=== PATIENT | male | born 1990 | race Caucasian/White ===

== ENCOUNTER 2024-03-20 09:51 | Emergency (ER) | payer BC, SELFPAY ==
[2024-03-20 10:13] VITALS: BP 168/109
[2024-03-20 10:35] LABS: % Basophils 1.4 % (0-2); % Eosinophils 9.4 % (0-6); % Lymphocytes 35.6 % (20.5-51.1); % Monocytes 8.9 % (1.7-9.3); % Neutrophils 44.7 % (42.2-75.2); Absolute Basophils 0.1 10^3/uL (0-0.2); Absolute Eosinophils 0.4 10^3/uL (0-0.7); Absolute Lymphocytes 1.6 10^3/uL (1.2-3.4); Absolute Monocytes 0.4 10^3/uL (0.1-0.6); Hematocrit 41.4 % (39.0-52.0); Hemoglobin 14.4 g/dL (13.0-18.0); Mean Corp Hgb Conc. 34.8 g/dL (33.0-37.0); Mean Corpuscular Hgb 30.1 pg (27.0-31.0); Mean Corpuscular Volume 86.4 fL (80.0-94.0); Mean Platelet Volume 9.6 fL (7.4-10.4); Nucleated Red Blood Cells % 0 % (-); Platelet Count 288 10^3/uL (130-400); Red Blood Cell Count 4.79 10^6/uL (4.70-6.10); Red Cell Dist. Width 11.7 % (11.5-14.5); White Blood Cell Count 4.4 10^3/uL (4.8-10.8)
[2024-03-20 11:02] VITALS: BP 179/93
[2024-03-20 11:19] LABS: ALT (SGPT) 40 U/L (0-50); AST (SGOT) 28 U/L (17-59); Albumin 4.8 g/dl (3.5-5.0); Alkaline Phosphatase 52 U/L (38-126); Blood Urea Nitrogen 10 mg/dl (9-20); Calcium 9.8 mg/dl (8.4-10.2); Carbon Dioxide 30 mmol/L (22-30); Chloride 98 mmol/L (98-107); Glucose 113 mg/dl (70-99); Potassium 4.5 mmol/L (3.5-5.1); Sodium 136 mmol/L (135-145); Total Bilirubin 0.6 mg/dl (0.2-1.3); Total Protein 7.2 g/dl (6.3-8.2); eGFR > 60.00
--- NOTE | 2024-03-20 11:29 | ED.GENMED ---
History of Present Illness
<Maxim Sood MD, Resident - Last Filed: 03/20/24 14:17>
General
Chief Complaint: Chest Pain
Source: patient and family
Time Seen by Provider: 03/20/24 11:03
Nursing documentation reviewed up to this point in time: agreed with
Travel History
Have you traveled to any high risk areas for coronavirus over the past 14 days?: No
Have you had any contact with someone who has COVID-19?: No
Do you have any symptoms of coronavirus? Fever > 100 degrees, chills, cough, shortness of breath, sore throat, loss of taste or smell, muscle aches, or headache?: No
History of Present Illness
History of Present Illness:
33-year-old male with PMH of asthma, sciatica, hyperlipidemia who presented to the emergency department today with chest pain and dizziness that started around 3 hours ago while sitting on his computer desk. Patient describes a stabbing chest pain
rated 8/10, radiating to the back and down his left arm. Patient took chewable aspirin and Pepcid with improvement of the chest pain. At that time, it was hard for patient to swallow water. Patient also reports that he had high blood pressure this
morning 189/118 and 220/122 on recheck. Patient has had significant family history of hypertension, TIA in his father, similar chest pain in his older brother and an uncle that of heart attack at the age of 50. He does not take any medications
and has not seen any PCP in 2 years. He has never had similar pain in the past. He denies any sick contacts, shortness of breath, abdominal pain, nausea, vomiting, constipation, fever or chills. Denies history of anxiety and depression.
Past History
<Maxim Sood MD, Resident - Last Filed: 03/20/24 14:17>
Past History
ED Past Medical History: Asthma and Hypercholesterolemia
ED Past Surgical History: None
Patient has exhibited threatening behavior?: No
Social History
Tobacco: Non-smoker
Alcohol: Occasional
Drug: None
Personal:
Living: with family
Employment: Employed
Family History
Family History: Hypertension and Other (Chest pain)
Review of Systems
<Maxim Sood MD, Resident - Last Filed: 03/20/24 14:17>
Review of Systems
Other source history: family
All Other Systems: ROS reviewed and negative except as documented in HPI and ROS
Phy Exam
<Maxim Sood MD, Resident - Last Filed: 03/20/24 14:17>
General Physical Exam
General Presentation: well appearing and no apparent distress
General age: appears stated age
General Skin: warm and dry
General Habitus: normal
General Mental: alert
General Hydration: appears well hydrated
ENT Exam
ENT Exam: neck supple and swallowing well
Eye Exam
Eye Exam: PERRL, cornea clear and conjunctiva normal
Cardiovascular Exam
Cardiovascular Exam: regular rate/rhythm, no edema, no gallop, no murmur and normal peripheral pulses
Heart Sounds: normal
Pulmonary Exam
Pulmonary Exam: lungs clear, no respiratory distress, no crackles, no wheezing and no cough
Gastrointestinal Exam
Gastrointestinal Exam: normal bowel sounds, non tender, soft, no organomegaly and non distended
Auscultation of Abdomen: normal
Neurological Exam
Neurological Exam: alert, oriented x3 and CN II-XII intact
Musculoskeletal Exam
Musculoskeletal Exam: full ROM and no edema
Skin Exam
Skin Exam: normal color, warm/dry, no rash and no petechia
Psychiatric Exam
Psychiatric Exam: normal mood/affect
Scores
<Maxim Sood MD, Resident - Last Filed: 03/20/24 14:17>
Heart Score for Chest Pain Patients
STEMI patient?: No
History: Slightly or Non-Suspicious
ECG: Normal
Age: </= 45 years
Risk Factors: No Risk Factors
Troponin: </= Normal Limit
Heart Score for Chest Pain Patients: 0
Heart Score Risk: 2.5% MACE over next 6 weeks
Course
<Maxim Paulo Sood MD, Resident - Last Filed: 03/20/24 14:17>
Orders/Labs/Results
Orders:
Orders
03/20/24 09:52
ECG [Electrocardiogram (*1)] Urgent
Reason for Study: Chest Pain
03/20/24 09:53
EKG- Treatment ONCE
03/20/24 10:23
Complete Blood Count/With Diff Urgent
Comprehensive Metabolic Panel Urgent
Troponin I Urgent
03/20/24 12:05
Vital Signs- Treatment ONCE
Frequency: Once
03/20/24 12:27
CXR2 [CR Chest - 2 Views ] Stat
Comment:
Reason For Exam: Chest pain
03/20/24 13:32
Troponin I Urgent
Abnormal Lab Results
03/20/24
10:23
WBC 4.4 L 10^3/uL
(4.8-10.8)
Eosinophils % 9.4 H %
(0-6)
Glucose 113 H mg/dl
(70-99)
03/20/24 10:23
03/20/24 10:23
Vital Signs
Initial and Last Documented VS:
Initial Vital Signs
Temp Pulse Resp BP Pulse Ox
98.2 F 74 16 168/109 98
03/20/24 10:13 03/20/24 10:13 03/20/24 10:13 03/20/24 10:13 03/20/24 10:13
Last Documented Vital Signs
Temp Pulse Resp BP Pulse Ox
98.2 F 62 14 149/91 97
03/20/24 10:13 03/20/24 12:45 03/20/24 12:45 03/20/24 12:30 03/20/24 12:45
<Valentino Diego, DO - Last Filed: 03/20/24 13:37>
Orders/Labs/Results
Orders:
Orders
03/20/24 09:52
ECG [Electrocardiogram (*1)] Urgent
Reason for Study: Chest Pain
03/20/24 09:53
EKG- Treatment ONCE
03/20/24 10:23
Complete Blood Count/With Diff Urgent
Comprehensive Metabolic Panel Urgent
Troponin I Urgent
03/20/24 12:05
Vital Signs- Treatment ONCE
Frequency: Once
03/20/24 12:27
CXR2 [CR Chest - 2 Views ] Stat
Comment:
Reason For Exam: Chest pain
03/20/24 13:32
Troponin I Urgent
Abnormal Lab Results
03/20/24
10:23
WBC 4.4 L 10^3/uL
(4.8-10.8)
Eosinophils % 9.4 H %
(0-6)
Glucose 113 H mg/dl
(70-99)
03/20/24 10:23
03/20/24 10:23
Vital Signs
Initial and Last Documented VS:
Initial Vital Signs
Temp Pulse Resp BP Pulse Ox
98.2 F 74 16 168/109 98
03/20/24 10:13 03/20/24 10:13 03/20/24 10:13 03/20/24 10:13 03/20/24 10:13
Last Documented Vital Signs
Temp Pulse Resp BP Pulse Ox
98.2 F 62 14 149/91 97
03/20/24 10:13 03/20/24 12:45 03/20/24 12:45 03/20/24 12:30 03/20/24 12:45
<Maxim Sood MD, Resident - Last Filed: 03/20/24 14:17>
MDM/Problems Addressed
Differential Diagnosis Includes:
GERD, acute coronary syndrome, musculoskeletal pain, aortic dissection.
MDM/Problems Addressed:
33-year-old male with PMH of asthma, hyperlipidemia presenting to the emergency department with stabbing chest pain radiating to the back and left arm. His chest pain is not pleuritic, is not hypoxic and has no edema on physical exam.
EKG within normal limits
1 hour troponin is normal
CBC and BMP within normal limits
Will repeat BP on both arms
Check chest x-ray
Chronic conditions affecting care: HTN
Acute Exacerbation and/or Progression of Chronic Illness: HTN
<Maxim Sood MD, Resident - Last Filed: 03/20/24 14:17>
*Pulse Oximetry
Patient hypoxic: no
*EKG
Interpreted by ED Provider?: Yes
Interpretation: normal
Comparison EKG: changes noted (WHEN COMPARED WITH ECG OF 24-AUG-2013 18:06, QT HAS SHORTENED)
Heart Rate: 68
Rate: normal
Rhythm: sinus arrhythmia
Interval: other (Short QT)
QRS Pattern: normal QRS
Ischemia: no ischemia
Data Reviewed
Review of Other/Old Records Reveals: Labs and Records (Creatinine 1.1 08/24/2013)
<Valentino Diego DO - Last Filed: 03/20/24 13:37>
*Radiology
Radiology exam reviewed: all reviewed NAD by ED Provider
*Power Cutting Machine Operator Interpretation
Rate: normal
Interpretation: normal
Rhythm: sinus
*Critical Care Note
Total Time (30-74mins, 75-104mins- exclusive of procedures): Not Applicable
Data Reviewed
Prescriptions/Medications Considered But Not Given:
Consider blood pressure management but patient would like to hold off for repeat blood pressure by his doctor
<Maxim Sood MD, Resident - Last Filed: 03/20/24 14:17>
Update Note
Update Note:
BP improved to 158/98 on left arm, 149/91 on right arm with no intervention.
ED Attending Note
<Maxim Sood MD, Resident - Last Filed: 03/20/24 14:17>
-
Portions of this chart may have been created with voice recognition software.� Occasional wrong word or��sound alike� substitutions may have occurred due to the inherent limitations of voice recognition software.
<Valentino Diego DO - Last Filed: 03/20/24 13:37>
ED Attending Note
Patient seen and examined by attending physician: Yes
I performed a history and physical exam of patient and discussed management with resident, I reviewed resident's note and agree with documented findings and plan of care.: Yes
ED Attending Note:
33-year-old male with history of hypertension who presents for evaluation of chest pain. Patient states he had pain in his left chest and radiate toward his back. He a tough time swallowing water. Patient now feels much better. Did eat a granola
bar this morning. Does admit he took his blood pressure was noted to be elevated. Patient mitts that he has been told he has high blood pressure in the past but has not seen his doctor. Exam: Awake and alert, no respiratory distress, heart
regular without murmurs. No lower extremity edema, no tachycardia, pulse ox normal at 90%. Assessment plan: EKG normal. Initial troponin negative. Blood pressure is elevated but equal bilateral upper extremities. Does have strong family history
of hypertension. Advised strongly for outpatient follow-up for blood pressure management. Did offer him antihypertensives but patient would like to hold off for now and follow-up with his primary care doctor which I think is reasonable. No
clinical concern for PE, dissection or SD. Repeat troponin pending. Given low suspicion I do think it is reasonable to let him go pending the result and he will come back if we find is elevated.
Discharge Plan
Departure
Patient Disposition: Home (Routine Discharge)
Date of Disposition: 03/20/24
Time of Disposition: 13:28
Patient with high blood pressure during this ER visit?: Yes
Discharge Problem:
Chest pain, Uncontrolled hypertension
Instructions: Chest Pain PCP Follow Up, BLOOD PRESSURE
Prescriptions:
No Action
prednisone 20 MG tablet
40 mg PO DAILY Qty: 8 0RF
Referrals:
Juan Canales MD [Family Provider] -
Activity Restrictions/Additional Instructions:
Your blood pressure was elevated while in the Emergency Department, please have your doctor re-evaluate it in the next 48 hours as untreated hypertension may lead to serious complications.
Return immediately for worsening pain, shortness of breath, palpitations, weakness of any kind or any other concerns. As discussed, please see your doctor in the next 3 to 5 days for follow-up and reevaluation and reassessment of your blood pressure
Interventions
Interventions:
*Risk Screen - Suicide Last Done: 03/20/24 10:15
*General Assessment Last Done: 03/20/24 12:35
*Neglect/Abuse Screening Last Done: 03/20/24 10:15
ED- Fall Risk Assessment Last Done: 03/20/24 13:50
*Nursing Disposition Last Done: 03/20/24 13:50
ED- Cardiac Assessment Last Done: 03/20/24 12:35
Discharge Date and Time
Discharge Date/Time: 03/20/24 13:51
Print Language: ETHIOPIAN
[2024-03-20 11:31] LABS: Troponin I < 0.012 ng/ml
[2024-03-20 12:00] VITALS: BP 156/94
[2024-03-20 12:13] VITALS: BP 150/98
[2024-03-20 12:29] VITALS: BP 154/98
[2024-03-20 12:30] VITALS: BP 149/91
[2024-03-20 14:04] LABS: Troponin I < 0.012 ng/ml
== END 2024-03-20 13:51 | disposition home or self-care (01) ==
LOC: EMR 09:51
PROVIDERS: Emergency Medicine; EMERGENCY PHYSICIAN Emergency Medicine; FAMILY PHYSICIAN Family Medicine
DX: R07.89 Other chest pain (principal); I10 Essential (primary) hypertension; J45.909 Unspecified asthma, uncomplicated; E78.00 Pure hypercholesterolemia, unspecified
CPT/HCPCS: 99285; 71046; 80053; 84484; 85025; 93005